=== PATIENT | female | born 1945 | race Two or more races ===

== ENCOUNTER → 2016-09-27 | Outpatient (CLI) | payer MEDICARE ==
[~2016-09-27] MED LIST: AZIT500T4 PO; CEFD300C2 PO; CELE100C PO; FLUO10CA7 PO; FLUO20CA8 PO; FLUO20TA25 PO; GUAI-103 PO; LIOT5TAB3 PO; LISI-167 PO; NAPR220T77 PO; OXYC5CAP4 PO; PANT20TA2 PO; PANT40TA5 PO; VERA180T56 PO; VERA40TA PO
== END | disposition home or self-care (01) ==
LOC: CFH 15:23
PROVIDERS: ATTEND Specialist
DX: E03.9 Hypothyroidism, unspecified (principal); E04.1 Nontoxic single thyroid nodule; J34.2 Deviated nasal septum
CPT/HCPCS: 76536

== ENCOUNTER → 2016-11-15 | Outpatient (CLI) | payer MEDICARE ==
[~2016-11-15] MED LIST changes: -AZIT500T4 PO; +AZIT500T77 PO; -CEFD300C2 PO; +CEFD300C37 PO
== END | disposition home or self-care (01) ==
LOC: CFH 14:14
PROVIDERS: ATTEND Family Medicine
DX: Z12.31 Encounter for screening mammogram for malignant neoplasm of breast (principal)
CPT/HCPCS: G0202

== ENCOUNTER → 2016-12-28 | Outpatient (CLI) | payer MEDICARE ==
[~2016-12-28] MED LIST changes: +ASCO500T29 PO; +CALC1CAP8 PO; +CHOL10003 PO; +GLUC1TAB27 PO; +LORA-869 PO; +MULT-82 PO; +OXYC1TAB9 PO; +VENL37.57 PO; +VERA240C2 PO
== END | disposition home or self-care (01) ==
LOC: STAR 12:24
PROVIDERS: ATTEND Internal Medicine
DX: Z01.818 Encounter for other preprocedural examination (principal); Z12.11 Encounter for screening for malignant neoplasm of colon; R94.31 Abnormal electrocardiogram [ECG] [EKG]; R10.13 Epigastric pain; I10 Essential (primary) hypertension; E03.9 Hypothyroidism, unspecified; G47.30 Sleep apnea, unspecified; E66.9 Obesity, unspecified; G89.29 Other chronic pain; Z96.641 Presence of right artificial hip joint
CPT/HCPCS: 93005

== ENCOUNTER → 2017-12-28 | Outpatient (CLI) | payer MEDICARE ==
[~2017-12-28] MED LIST changes: +ASCO-90 PO; -ASCO500T29 PO; +AZIT500T5 PO; -AZIT500T77 PO; +GABA300C10 PO; +MULT-224 PO; -MULT-82 PO; +OXYC-432 PO; -OXYC1TAB9 PO; +OXYC5CAP2 PO; -OXYC5CAP4 PO; +VERA180C2 PO; +[UNRECOGNIZED DRUG - OTHER] PO
== END | disposition home or self-care (01) ==
LOC: STAR 12:13
PROVIDERS: ATTEND Internal Medicine
DX: Z12.11 Encounter for screening for malignant neoplasm of colon (principal); K21.9 Gastro-esophageal reflux disease without esophagitis
CPT/HCPCS: 93005

== ENCOUNTER → 2017-12-29 | Outpatient (CLI) | payer MEDICARE | END | disposition home or self-care (01) | LOC: CFH 10:57 | PROVIDERS: ATTEND Radiology Diagnostic Radiology | DX: Z12.31 Encounter for screening mammogram for malignant neoplasm of breast (principal) | CPT/HCPCS: 77067 ==

== ENCOUNTER 2018-01-02 10:47 | Day surgery (SDC) | payer MEDICARE ==
[~2018-01-02] VITALS: Ht 162.6 cm; Wt 89.7 kg
[2018-01-02] MEDS ORDERED: LIDOCAINE-MPF 1%, 2ML ONE (11:04)
[2018-01-02 11:06] VITALS: BP 106/68
[2018-01-02] MEDS ORDERED: LACTATED RINGERS 1,000 ML IV SCH (11:09)
[2018-01-02] MEDS ORDERED: LIDOCAINE-MPF 1%, 2ML INFIL ONE (11:30)
[2018-01-02] MEDS ORDERED: PROPOFOL 10 MG/ML, 20ML ONE (13:17)
[2018-01-02] MEDS ORDERED: ONDANSETRON ODT 8 MG PO PRN (14:00)
[2018-01-02] MEDS ORDERED: FENTANYL PF 100 MCG/2ML IV PRN (14:00)
[2018-01-02] MEDS ORDERED: MIDAZOLAM 1 MG/ML, 2ML IV PRN (14:00)
[2018-01-02] MEDS ORDERED: ONDANSETRON ODT 8 MG ONE (14:17)
== END 2018-01-02 16:00 | disposition home or self-care (01) ==
LOC: OUT 10:47
PROVIDERS: ATTEND Internal Medicine
DX: Z12.11 Encounter for screening for malignant neoplasm of colon (principal); K57.30 Diverticulosis of large intestine without perforation or abscess without bleeding; K64.8 Other hemorrhoids; K21.9 Gastro-esophageal reflux disease without esophagitis
CPT/HCPCS: 43235; 45378; J2704; J3490; J7120; Q0162